=== PATIENT | male | born 1985 | race African-American/Black ===

== ENCOUNTER 2022-02-28 23:41 | Emergency (ER) | payer SELFPAY ==
[~2022-02-28] VITALS: Ht 175.3 cm; Wt 69.9 kg
--- NOTE | 2022-03-01 | NUR ---
BIBSELF C/O LEFT AREA GENITAL PAIN FOR THE PAST 2-3 DAYS.
--- NOTE | 2022-03-01 00:19 | NUR ---
URINE COLLECTED AND SENT TO LAB
--- NOTE | 2022-03-01 00:55 | NUR ---
US TECH AT PT'S BEDSIDE
[2022-03-01 01:06] LABS: BILIRUBIN,URINE NEGATIVE (NEGATIVE); COLOR,URINE YELLOW (YELLOW); LEUKOCYTE ESTERASE ,URINE NEGATIVE (NEGATIVE); NITRITE, URINE NEGATIVE (NEGATIVE); PROTEIN,URINE NEGATIVE (NEGATIVE); UGLUCOSE NEGATIVE (NEGATIVE); UROBILINOGEN,URINE 0.2 EU/dL (0.2)
[2022-03-01] MEDS ORDERED: CEPH500T PO (03:21)
[2022-03-01] MEDS ORDERED: SULF1TAB47 PO (03:21)
[2022-03-01] MEDS ORDERED: CEPHALEXIN MONOHYDRATE 500 MG CAPSULE PO ONE ×2 (03:30→03:38)
[2022-03-01] MEDS ORDERED: SULFAMETH/TRIMETH 800/160 MG 1 UDTAB TABLET PO ONE (03:30)
[2022-03-01] MEDS ORDERED: HYDROCODONE/APAP 5/325MG TABLET ONE (03:38)
[2022-03-01] MEDS ORDERED: SULFAMETH/TRIMETH 800/160 MG 1 UDTAB TABLET ONE (03:39)
--- NOTE | 2022-03-01 03:50 | NUR ---
Patient discharged to home in stable condition. Written and verbal after care instructions given. Patient verbalizes understanding of instruction. PT ambulatory with a steady gait
[2022-03-01] MEDS ORDERED: HYDROCODONE/APAP 5/325MG TABLET PO ONE (04:00)
[2022-03-01 04:13] VITALS: BP 144/77
[2022-03-01 09:02] LABS: BACTERIA,URINE None seen /HPF (None Seen); SQUAMOUS EPITHELIAL CELL,UR None Seen /HPF (None Seen); WBC,URINE 0-2 /HPF (0-3)
== END 2022-03-01 03:45 | disposition home or self-care (01) ==
LOC: ER 23:45
DX: L03.314 Cellulitis of groin (principal); Z60.2 Problems related to living alone
CPT/HCPCS: 76870-TC; 81001